=== PATIENT | female | born 1990 | race African-American/Black ===

== ENCOUNTER 2017-02-20 20:07 | Emergency (ER) | payer MEDICAID, OTHER ==
[~2017-02-20] VITALS: Ht 165.1 cm; Wt 91.0 kg
[~2017-02-20 20:07] MED LIST: BIRTH CONTROL; NEO/POLY/DEX
[2017-02-20] MEDS ORDERED: KETOROLAC 60MG/2ML VIAL IM ONE (23:30)
[2017-02-21 01:04] VITALS: BP 131/71
== END 2017-02-21 01:05 | disposition home or self-care (01) ==
LOC: ER 21:14
DX: M25.571 Pain in right ankle and joints of right foot (principal); Z88.5 Allergy status to narcotic agent; X50.1XXA Overexertion from prolonged static or awkward postures, initial encounter; Y93.89 Activity, other specified; Y92.89 Other specified places as the place of occurrence of the external cause; Y99.8 Other external cause status
CPT/HCPCS: 73610; 81025; 96372; 99284; J1885; Z7610

== ENCOUNTER 2023-09-23 13:37 | Emergency (ER) | payer MEDICAID ==
[~2023-09-23] VITALS: Ht 165.1 cm; Wt 122.0 kg
[2023-09-23 14:01] VITALS: O2SAT 100
[2023-09-23] MEDS: TETRACAINE 0.5% OPHTH DROPS 4ML BOTHEYE ONE (14:40)
[2023-09-23] MEDS: FLUORESCEIN SODIUM 1MG/STRIP BOTHEYE ONE (14:40)
[2023-09-23] MEDS ORDERED: ERYT1OIN6 EACHEYE (14:45)
[2023-09-23 14:54] VITALS: BP 148/80; PULSE 85; RESP 14; TEMP 99
== END 2023-09-23 14:57 | disposition home or self-care (01) ==
LOC: ER 13:37
DX: H10.9 Unspecified conjunctivitis (principal)
CPT/HCPCS: 99282; Z7610

== ENCOUNTER 2023-10-04 10:22 | Emergency (ER) | payer MEDICAID ==
[~2023-10-04] VITALS: Ht 165.1 cm; Wt 111.0 kg
[~2023-10-04 10:22] MED LIST changes: +ERYT1OIN6 EACHEYE
[2023-10-04 11:02] VITALS: BP 139/77; PULSE 97; TEMP 98.2; O2SAT 99
[2023-10-04] MEDS ORDERED: POLY10DR17 EACHEYE (12:25)
[2023-10-04] MEDS ORDERED: POLY15DR17 EACHEYE (12:25)
[2023-10-04 12:30] VITALS: RESP 17
== END 2023-10-04 15:36 | disposition home or self-care (01) ==
LOC: ER 10:51
DX: H04.123 Dry eye syndrome of bilateral lacrimal glands (principal); H10.89 Other conjunctivitis; Z88.5 Allergy status to narcotic agent
CPT/HCPCS: 99282